=== PATIENT | female | born 1960 | race Hispanic/Latino ===

== ENCOUNTER 2024-09-01 14:25 | Emergency (ER) | payer MEDICARE | END 2024-09-01 16:32 | disposition home or self-care (01) | LOC: MADERS 14:25 | DX: J06.9 Acute upper respiratory infection, unspecified (principal); R53.83 Other fatigue; E11.9 Type 2 diabetes mellitus without complications; I10 Essential (primary) hypertension; F17.210 Nicotine dependence, cigarettes, uncomplicated | CPT/HCPCS: 71046; 99283 ==